=== PATIENT | female | born 1995 | race Caucasian/White ===

== ENCOUNTER 2022-04-09 13:05 | Outpatient (CLI) | payer OTHER ==
[~2022-04-09] VITALS: Ht 152.4 cm; Wt 98.2 kg
[2022-04-09 13:20] VITALS: BP 105/51; PULSE 113; TEMP 98.1
[2022-04-09] MEDS ORDERED: PRENATAL FORMU1 EAC3 PO (13:38)
[2022-04-09 13:45] VITALS: BP 137/79; PULSE 92
[2022-04-09 14:00] LABS: COLLECTION METHOD CLEAN CATCH
--- NOTE | 2022-04-09 14:05 | NUR ---
1320 PATIENT HERE FOR COMPLAINTS OF FEELING PELVIC PRESSURE THE LAST 2 DAYS, CALLED OFFICE AND OFFICE SAID TO GO TO HOSPITAL. EFM ON FHT 120 BABY VERY ACTIVE. NO CONTRACTIONS ON MONITOR OR FELT BY PATIENT. ASSESSMENT COMPLETED AT THIS TIME. NO OTHER COMPLAINTS NOTED. SVE /-[address] EASTON CALLED AND UPDATED ON ALL ABOVE INFORMATION. ORDERS TO GET A UA AND SEND TO LAB.
[2022-04-09 14:08] LABS: URINE APPEARANCE Turbid (CLEAR/HAZY); URINE COLOR Yellow (YELLOW)
[2022-04-09 14:09] LABS: PH 5.5 (5.0-8.5); URINE GLUCOSE TRACE (NEGATIVE); URINE KETONE TRACE (NEGATIVE); URINE NITRATE Negative (NEGATIVE); URINE PROTEIN(semi-quant) 2+ (NEGATIVE); URINE UROBILINOGEN 0.2 E.U/dL (0.2-1.0)
[2022-04-09 14:10] LABS: URINE BLOOD Negative (NEGATIVE)
[2022-04-09 14:14] LABS: AMORPHOUS CRYSTAL Present (NOT PRESENT); MUCOUS Present (NOT PRESENT); URINE BACTERIA Moderate /hpf (NONE SEEN)
[2022-04-09 14:29] VITALS: BP 137/79; PULSE 92
--- NOTE | 2022-04-09 14:30 | NUR ---
[address] EASTON AND ORDERS TO DISMISS TO HOME. SVE UNCHANGED. ALL DISCHARGE INSTRUCTIONS GIVEN PATIENT WITH VERBAL UNDERSTANDING NOTED. BABY REMAINS VERY ACTIVE.
== END 2022-04-09 14:33 | disposition home or self-care (01) ==
LOC: LDRO 13:05
PROVIDERS: Obstetrics & Gynecology
DX: O99.891 Other specified diseases and conditions complicating pregnancy (principal); N94.89 Other specified conditions associated with female genital organs and menstrual cycle; Z3A.36 36 weeks gestation of pregnancy

== ENCOUNTER 2022-04-23 03:34 | Inpatient (IN) | payer OTHER ==
[2022-04-23] VITALS (27 sets, daily range): BP systolic 113–166; BP diastolic 56–103; PULSE 70–166; TEMP 98.2–100.1
[~2022-04-23] VITALS: Ht 152.4 cm; Wt 99.5 kg
--- NOTE | 2022-04-23 03:30 | NUR ---
0330- PT PRESENTS TO LDR COMPLAINING OF LEAKING FLUID AND CONTRACTIONS, TO LR6 PER WHEELCHAIR, CHANGED INTO GOWN. 0333- EFM X2 APPLIED. PT REPORTS LEAKING STARTED AT 0230. STATES SHE HAS BEEN DERECK ALL DAY BUT THEY ARE MORE INTENSE SINCE HER WATER BROKE. SHE DENIES VAGINAL BLEEDING AND STATES SHE DOES FEEL THE BABY MOVE. PLAN OF CARE FOR LABOR AND SROM CHECK DISCUSSED AND QUESTIONS ANSWERED. 0340- AMNITRACE POSITIVE AND FLUID POOLING NOTED. SVE BY THIS NURSE 2-2. 0350- PLAN OF CARE FOR ADMISSION DISCUSSED. IV START TO LEFT HAND X2 ATTEMPTS. BLOOD DRAWN FOR LAB. PT IS BREATHING THROUGH CONTRACTIONS. 0355- PT ASSISTED UP TO BATHROOM. 0400- PT BACK TO BED, MONITORS ADJSUTED. NURSING ADMISSION HISTORY AND ASSESSMENT COMPLETED. 0420- PT STATES SHE IS FEELING SOME PRESSURE. SVE BY THIS NURSE . LR INFUSING. PEN G STARTED ORDERED. 0430- PT GETS UP TO STAND AT EDGE OF BED FOR COMFORT. DIFFICULT TO MONITOR EFM AT THIS TIME. CONSENTS SIGNED. 0445- NURSE HOLDS MONITOR ON TO VERIFY HEARTTONES. 0455- PT STILL STANDING AT EDGE OF BED, DIFFICULT TO TRACE EFM. NURSE AT BEDSIDE AND HOLDS MONITOR IN PLACE TO VERIFY FHT. 0500- PT STATES SHE CANNOT DO IT ANYMORE AND WOULD LIKE HER EPIDURAL NOW. 0503- ADELAIDA MAHER CALLED FOR EPIDURAL PLACEMENT. PT STANDING AT SIDE OF BED VOMITTING. TRACING MATERNAL INTERMITTENTLY. 0511- PT STILL STANDING AT SIDE OF BED, DIFFICULT TO TRACE EFM. NURSE AT BEDSIDE AND HOLDS MONITOR IN PLACE TO VERIFY FHT. 0515- PT UP TO BATHROOM. 0520- PT BACK ON MONITOR. 0530- PT FEELING MORE PRESSURE AND DISCOMFORT. SVE BY THIS NURSE /-2. PT VERY UNCOMFORTABLE AND TEARFUL AT THIS TIME. ENCOURAGEMENT PROVIDED. NURSE ADJUSTS MONITORS. 0538- EVETTE MAHER HERE FOR EPIDURAL PLACEMENT. PT POSITIONED SITTING UP ON EDGE OF BED. VERBAL CONSENT AND TIME OUT COMPLETE. 0543- EPIDURAL SINGLE SHOT BY EVETTE MAHER. 0549- EPIDURAL COMPLETE. PT POSITIONED IN LEFT TILT AND MONITORS ADJUSTED. PT TOLERATED WELL. 0600- PEANUT BALL PLACED UNDER RIGHT LEG. PT FEELING MORE COMFORTABLE WITH EPIDURAL NOW. 0615- PT CALLS OUT STATING SHE IS FEELING MORE PRESSURE IN HER BOTTOM NOW. NURSE TO BEDSIDE. SVE BY THIS NURSE /0. PT ENCOURAGED TO LET NURSE KNOW IF SHE FEELS MORE PRESSURE.
[~2022-04-23 03:34] MED LIST: PRENATAL FORMU1 EAC3 PO
[2022-04-23 04:50] LABS: BASO % 0.3 % (0.0-2.0); EOS # 0.1 K/mm3 (0.0-0.7); GRAN # 6.8 K/mm3 (1.4-6.5); GRAN % 69.9 % (42.2-75.2); HEMATOCRIT 38.5 % (37.0-47.0); HEMOGLOBIN 12.8 g/dl (12.5-16.0); LYMPH % 20.8 % (20.0-51.0); MEAN CELL VOLUME 78 fl (80.0-100.0); MEAN CORPUSCULAR HEMOGLOBIN 26 pg (27-31); MEAN CORPUSCULAR HGB CONC 33 g/dl (33.0-37.0); MEAN PLATELET VOLUME 13.8 fl (7.4-10.4); MONO # 0.7 K/mm3 (0.1-0.6); MONO % 7.6 % (1.7-9.3); PLATELET COUNT 143 K/mm3 (130-400); RED BLOOD COUNT 4.96 M/mm3 (4.10-5.30); REDCELL DISTRIBUTION WIDTH-CV 14.6 % (11.5-14.5)
[2022-04-23] MEDS ORDERED: MOTRIN 800800 MG/TAB PO (14:28)
[2022-04-24] VITALS: BP 123/81; PULSE 83; TEMP 98.1
[2022-04-24 08:20] VITALS: BP 128/85; PULSE 78; TEMP 97.8
== END 2022-04-24 13:10 | disposition home or self-care (01) | DRG 807 ==
LOC: LDRO 03:34 → OB 03:50 → LDR 03:50 → OB 12:20
PROVIDERS: Obstetrics & Gynecology; ADMIT Obstetrics & Gynecology
PROC: 10E0XZZ Delivery of Products of Conception, External Approach (ICD-10-PCS; principal; 2022-04-23)
PROC: 0HQ9XZZ Repair Perineum Skin, External Approach (ICD-10-PCS; 2022-04-23)
PROC: 0UQMXZZ Repair Vulva, External Approach (ICD-10-PCS; 2022-04-23)
DX: O99.824 Streptococcus B carrier state complicating childbirth (principal); Z37.0 Single live birth; Z3A.38 38 weeks gestation of pregnancy; O70.0 First degree perineal laceration during delivery; O71.82 Other specified trauma to perineum and vulva; O99.344 Other mental disorders complicating childbirth; F41.9 Anxiety disorder, unspecified; O99.214 Obesity complicating childbirth; Z23 Encounter for immunization
CPT/HCPCS: J2540; J2590; J7120